=== PATIENT | female | born 1990 | race Hispanic/Latino ===

== ENCOUNTER 2025-07-18 05:54 | Day surgery (SDC) | payer OTHER ==
[2025-07-18] MEDS ORDERED: PROPOFOL 40 ML ONE (06:26)
[2025-07-18] MEDS ORDERED: diphenhydrAMINE 50 MG/ML VIAL ONE (06:34)
[2025-07-18 07:15] LABS: #Basophils Less than 0.03 10x3/uL (0.0-0.2); #Eosinophils 0.09 10x3/uL (0.0-0.5); #Monocytes 0.35 10x3/uL (0.0-1.1); #Neutrophils 4.17 10x3/uL (1.5-8.4); %Basophils 0.2 % (0.0-2.0); %Eosinophils 1.6 % (0.0-6.0); %Lymphocytes 20.0 % (18.0-47.0); %Monocytes 6.0 % (0.0-10.0); %Neutrophils 72.0 % (40.0-75.0); Hematocrit 37.6 % (34.9-44.5); Hemoglobin 12.1 g/dL (12.0-15.5); Mean Corpuscular Hemoglobin 26.3 pg (27.0-33.0); Mean Corpuscular Volume 81.7 fL (81.6-98.3); Platelet Count 234 10x3/uL (150-450); Red Blood Cell (RBC) Count 4.60 10x6/uL (3.90-5.03); White Blood Cell (WBC) Count 5.79 10x3/uL (3.5-10.5)
[2025-07-18] MEDS ORDERED: Sevoflurane 250 ML INH ANEST BOTTLE ONE (07:15)
[2025-07-18] MEDS ORDERED: CEFAZOLIN 2 GM VIAL ONE (07:43)
[2025-07-18] MEDS ORDERED: HYDROcodone/Acetaminophen 5/325 mg Tablet ONE (09:44)
== END 2025-07-18 10:19 ==
LOC: CSHSDC 05:54
PROVIDERS: ATTEND Student in an Organized Health Care Education/Training Program
PROC: 0U5B8ZZ Destruction of Endometrium, Via Natural or Artificial Opening Endoscopic (ICD-10-PCS; principal; 2025-07-18)
DX: N84.0 Polyp of corpus uteri (principal)
CPT/HCPCS: 36415; 85025; 86850; 86900; 86901; 88305; 88307; J1100; J1200; J2250; J2704